=== PATIENT | male | born 1965 | race Caucasian/White ===

== ENCOUNTER → 2017-10-20 | Outpatient (CLI) | payer MEDICARE ==
[~2017-10-20] MED LIST: ALPR.25 PO; BACL20TA PO; HYDR-3583 PO; LYRI200C PO; MEDR4PAK PO; MOBI15TA PO; MULT-65 PO; OXYB5TAB8 PO; ZANT150T2 PO
== END ==
LOC: TOP 09:01
PROVIDERS: ATTEND Physical Medicine & Rehabilitation
DX: Z00.00 Encounter for general adult medical examination without abnormal findings (principal)